=== PATIENT | female | born 1950 | race Caucasian/White ===

== ENCOUNTER → 2020-04-01 11:23 | Outpatient (CLI) | payer OTHER, SELFPAY ==
--- NOTE | ~2020-04-01 | MM_ITS ---
EXAMINATION: MM screening [facility] BI w siria HISTORY: Screening mammogram TECHNIQUE: Craniocaudal and mediolateral oblique 3-D tomosynthesis images were obtained and synthetic 2-D images were generated. CAD analysis was submitted and interpreted. COMPARISON: 05/21/2016, 08/06/1999 digital screening mammogram examinations BREAST PARENCHYMAL COMPOSITION: There are scattered areas of fibroglandular density. FINDINGS: There is a low-density circumscribed lobular opacity in the inner aspect of the mid to lowe r outer left breast, diminished from up to 1.6 cm dimension on 12/06/2004. This is likely benign proce ss such as cyst. Decreased size since 2004 further supports benign diagnosis. There is no evidence of suspicious mass, calcification, or architectural distortion to suggest malignancy in either breast. There has been no suspicious interval change. IMPRESSION: 1. No mammographic evidence of malignancy. 2. Recommend routine screening mammography in one year. BI-RADS Category 2: Benign finding(s). Reviewed, dictated and finalized at location A. NG CONSULTANT
== END ==
PROVIDERS: PCP Internal Medicine; Visit Provider Obstetrics & Gynecology
DX: Z12.31 Encounter for screening mammogram for malignant neoplasm of breast (principal)
CPT/HCPCS: 77063; 77067

== ENCOUNTER → 2022-03-08 12:30 | Outpatient (CLI) | payer OTHER, SELFPAY ==
--- NOTE | ~2022-03-08 | MM_ITS ---
EXAMINATION: MM screening [facility] w siria HISTORY: Screening mammogram TECHNIQUE: Craniocaudal and mediolateral oblique 3-D tomosynthesis images were obtained and synthetic 2-D images were generated. CAD analysis was submitted and interpreted. COMPARISON: 04/01/2020 bilateral screening BREAST PARENCHYMAL COMPOSITION: There are scattered areas of fibroglandular density. FINDINGS: Chronic stable approximately 1.3 cm opacity in the central left breast, diminished in size since 05/21/2006, stable since 04/01/2020. There is no evidence of suspicious mass, calcification, or a rchitectural distortion to suggest malignancy in either breast. There has been no suspicious interval change. IMPRESSION: 1. No mammographic evidence of malignancy. 2. Recommend routine screening mammography in one year. BI-RADS Category 2: Benign finding(s). Reviewed, dictated and finalized at location A. [employer]
== END ==
PROVIDERS: PCP Nurse Practitioner Obstetrics & Gynecology; Visit Provider Nurse Practitioner Obstetrics & Gynecology
DX: Z12.31 Encounter for screening mammogram for malignant neoplasm of breast (principal)
CPT/HCPCS: 77063; 77067

== ENCOUNTER 2022-12-09 16:45 | Emergency (ER) | payer OTHER, SELFPAY ==
--- NOTE | 2022-12-09 16:58 | ED.UPPEXIN ---
HPI - Extremity Injury (Upper) General Chief Complaint: Skin/Abscess/Foreign Body Stated Complaint: swollen lt leg Time Seen by Provider: 12/09/22 17:11 Source: patient and RN notes reviewed Mode of arrival: ambulatory Limitations: no limitations History of Present Illness HPI narrative: Patient presents today complaining of left lower leg redness, swelling, itching. Symptoms were present when she woke up this morning. Denies pain, numbness or tingling, fever. She has applied some triple antibiotic ointment without relief. Related Data Allergies Allergy/AdvReac Type Severity Reaction Status Date / Time No Known Allergies Allergy Unknown Unverified 12/03/03 10:56 Review of Systems Review of Systems: CONSTITUTIONAL: Denies body aches, fever, chills, or sweats. EYES: Denies visual changes, redness, or discharge. ENT: Denies rhinorrhea, congestion, sore throat, or otalgia. CARDIOVASCULAR: Denies chest pain, palpitations, or edema. RESPIRATORY: Denies cough or dyspnea. GASTROINTESTINAL: Denies abdominal pain, nausea, vomiting, or diarrhea. GENITOURINARY: Denies dysuria or hematuria. SKIN: + left leg redness, swelling, and itching MUSCULOSKELETAL: Denies back pain, joint pain, or myalgia. NEUROLOGIC: Denies headache, numbness, tingling, or weakness. PSYCH: Denies depression or anxiety. [facility] Past Medical History Medical History (Updated 12/09/22 @ 17:29 by Afshan Scott, [facility], ) GERD (gastroesophageal reflux disease) Hypertension Comments At time of signature, I have reviewed and agree with nursing past medical, surgical, social and family history unless otherwise noted. Please see nursing chart for further information. There is no relevant family history pertinent to the presenting complaint Exam Narrative: GENERAL: Well-appearing, well-nourished, and in no acute distress. HEAD: Normocephalic, atraumatic. EYES: EOMI. No redness or drainage. Conjunctivae normal. ENT: Mucous membranes pink and moist. NECK: Normal AROM. CHEST: No respiratory distress. EXTREMITIES: Left leg: Mild localized erythema to the medial lower leg with scant pitting edema. Edema and erythema does not extend to the foot or ankle. Leg is nontender to palpation. Negative Homans. Distal sensation intact. Capillary refill normal. Pedal pulse normal. Foot is nontender. Patient has few scattered from petechiae, likely due to scratching and Eliquis use. SKIN: Warm, dry, no rash. Capillary refill normal. Normal skin turgor. NEURO: No focal deficits. Alert and oriented x3. Gait steady. PSYCH: Normal affect. No signs of depression or anxiety. Course Course Level of Care: Express Care Visit Vital Signs Vital signs: Vital Signs Temperature 97.6 F 12/09/22 16:59 Pulse Rate 91 12/09/22 16:59 Respiratory Rate 18 12/09/22 16:59 Blood Pressure 124/69 12/09/22 16:59 Pulse Oximetry 96 12/09/22 16:59 Oxygen Delivery Room Air 12/09/22 16:59 Temperature 97.6 F 12/09/22 16:59 Pulse Rate 91 12/09/22 16:59 Respiratory Rate 18 12/09/22 16:59 Blood Pressure 124/69 12/09/22 16:59 Pulse Oximetry 96 12/09/22 16:59 Oxygen Delivery Room Air 12/09/22 16:59 Reviewed. Pt has been instructed to follow up with her PCP regarding her elevated blood pressure today. MDM - Extremity Injury (Upper) MDM Narrative Medical decision making narrative: Symptoms and exam consistent with cellulitis. Will treat with Keflex. Anticipatory guidance given. Active meds not updated by RN. They are as follows: Eliquis, Olmesartan, HCTZ, Carvedilol, Sertraline. Differential Diagnosis Differential diagnosis: Likely other (DVT, contact dermatitis, cellulitis) Critical Care Time Critical Care Time Critical Care Time: No Discharge Plan Discharge Clinical Impression: Cellulitis of left lower leg Patient Disposition: Home, Self-Care Condition: Stable Instructions: Antibiotic Form, Cellulitis (ED
[2022-12-09 16:59] VITALS: BP 124/69; PULSE 91; RESP 18; TEMP 36.4; O2SAT 96
== END 2022-12-09 17:25 | disposition home or self-care (01) ==
PROVIDERS: Emergency Provider Nurse Practitioner; PCP Nurse Practitioner Family
DX: L03.116 Cellulitis of left lower limb (principal); I10 Essential (primary) hypertension
CPT/HCPCS: 99213; G0463

== ENCOUNTER 2024-07-28 13:14 | Outpatient (CLI) | payer OTHER, SELFPAY ==
--- NOTE | ~2024-07-28 | MM_ITS ---
EXAMINATION: MM screening [facility] BI w siria HISTORY: Screening TECHNIQUE: Craniocaudal and mediolateral oblique 3-D tomosynthesis images were obtained and synthetic 2-D images were generated. CAD analysis was submitted and interpreted. COMPARISON: Comparison to multiple prior studies sequentially, with oldest reviewed study dated 04/01. BREAST PARENCHYMAL COMPOSITION: Not dense: There are scattered areas of fibroglandular density. FINDINGS: Stable appearance to low-density mass in the left breast. There is no evidence of suspiciou s mass, calcification, or architectural distortion to suggest malignancy in either breast. There has been no suspicious interval change. IMPRESSION: 1. No mammographic evidence of malignancy. 2. Recommend routine screening mammography in one year. BI-RADS Category 2: Benign finding(s). Reviewed, dictated and finalized at location B.
== END 2024-07-28 13:15 | disposition home or self-care (01) ==
LOC: MICIMG 13:15
PROVIDERS: PCP Student in an Organized Health Care Education/Training Program; Visit Provider Student in an Organized Health Care Education/Training Program
DX: Z12.31 Encounter for screening mammogram for malignant neoplasm of breast (principal)
CPT/HCPCS: 77063; 77067